=== PATIENT | male | born 1970 | race Caucasian/White ===

== ENCOUNTER → 2020-10-23 07:00 | Outpatient (CLI) | payer OTHER, SELFPAY ==
--- NOTE | 2020-10-23 | DI.MRI.S_ITS ---
PROCEDURE: MR CERVICAL SPINE WO CON INDICATIONS: Spinal stenosis, cervical region TECHNIQUE: Noncontrast sagittal T1 spin echo and T2 fast spin echo, sagittal STIR, foraminal oblique sagittal T2 fast spin echo, and axial gradient echo or T2 fast spin echo through the cervical spine. COMPARISON: None. FINDINGS: Image quality: Degraded by motion artifact. Alignment and Curvature: Mild straightening of the normal cervical lordosis. Bone Marrow: No fracture. Multilevel degenerative endplate sclerosis and spurring. Diffuse facet arthropathy. Spinal Cord: Visualized spinal cord has normal size and signal. No cerebellar tonsillar herniation. Paraspinous Soft Tissues: No paravertebral masses. Prevertebral soft tissues are normal in thickness. C2-C3: Normal appearance. C3-C4: Minimal canal narrowing. Mild bilateral foraminal stenoses. C4-C5: Normal appearance C5-C6: No canal narrowing. Minimal bilateral foraminal narrowing C6-C7: Normal appearance C7-T1: Normal appearance. IMPRESSION: Straightening of the normal lordotic curvature. No high-grade canal or foraminal stenosis. Dictated by: Bautista Vela M.D. on 10/23/2020 at 9:37 Approved by: Bautista Vela M.D. on 10/23/2020 at 9:46
== END ==
PROVIDERS: Referring Provider Student in an Organized Health Care Education/Training Program; Visit Provider Student in an Organized Health Care Education/Training Program
DX: M48.02 Spinal stenosis, cervical region (principal)
CPT/HCPCS: 72141

== ENCOUNTER → 2021-06-12 08:02 | Outpatient (CLI) | payer OTHER, SELFPAY ==
--- NOTE | 2021-06-12 | DI.RAD.S_ITS ---
PROCEDURE: FL SHOULDER INJECTION MR/CT RT INDICATIONS: PAIN COMPARISON: None. TECHNIQUE: The indications, alternatives, benefits, risks, and complications of the procedure were explained to the patient. Written informed consent was obtained and placed in the chart. The shoulder was examined fluoroscopically and a site for needle placement chosen for entry into the glenohumeral joint from an anterior approach. The skin was prepped and draped in a sterile fashion, and 1% lidocaine infiltrated from skin down to joint capsule. A spinal needle was inserted into the glenohumeral joint, and a small amount of iodinated contrast media injected to confirm intra-articular placement of the needle tip. This was followed by approximately 12 mL dilute solution of a gadolinium containing MR contrast agent. The needle was removed and a dressing was applied. The patient was given postprocedural instructions and sent to the MR suite for MR imaging. FINDINGS: A single fluoroscopic spot image demonstrates intra-articular location of injected iodinated contrast. IMPRESSION: Successful fluoroscopically guided administration of dilute Gadolinium solution into the shoulder joint for MR arthrogram. Dictated by: Bautista Vela M.D. on 06/12/2021 at 10:40 Approved by: Bautista Vela M.D. on 06/12/2021 at 10:40
--- NOTE | 2021-06-12 | DI.MRI.S_ITS ---
PROCEDURE: MR SHOULDER RT W CON INDICATIONS: Impingement syndrome of right shoulder TECHNIQUE: After the administration of 12 mL of dilute intra-articular Gadolinium contrast, oblique coronal T1 and T2 spin echo with fat saturation, oblique sagittal T1 spin echo with and without fat saturation, oblique sagittal T2 fast spin echo with fat saturation, axial T1 spin echo with fat saturation through the shoulder. COMPARISON: [facility], MR, MR SHOULDER RT W CON, 04/28/2016, 15:05. [facility] [place], CR, XR SHOULDER 2+ VIEWS RIGHT, 05/28/2021, 10:56. [facility], RF, [place] SHOULDER INJECTION MR/CT RT, 06/12/2021, 9:39. FINDINGS: Image quality: Excellent. Rotator cuff: There is mild supraspinatus and infraspinatus tendinosis with focal low-grade intrasubstance tearing at the posterior supraspinatus/anterior infraspinatus tendon insertion measuring 6 mm in anterior-posterior dimension. The teres minor and subscapularis tendons are intact. There is no significant rotator cuff muscle atrophy. Bones and bursae: No acute trabecular bone injury. Chronic traction cystic changes are seen at the posterosuperior humeral head. Small focus of high-grade cartilage loss is seen at the anteroinferior glenoid adjacent to the labral tear. Mild degenerative changes are seen at the acromioclavicular joint. There is a trace amount of subacromial/subdeltoid bursal fluid that does not fill with intra-articular contrast material. No intra-articular loose body is seen in the glenohumeral joint. Capsule and soft tissues: Nondisplaced tearing of the anterior to anteroinferior labrum is seen. There is also nondisplaced tearing of the superior to posterosuperior labrum. These do not appear significantly changed in extent when compared to the MRI from 04/28/2016. The biceps long head tendon is intact. There is attenuation of the anterior band of the inferior glenohumeral ligament near its humeral attachment with extravasation of intra-articular contrast material into the axillary recess. Some of the ligament fibers are intact. Findings do not appear significantly changed when compared to the prior MRI. IMPRESSION: 1. Overall, no significant change when compared to the MRI from 04/28/2016. 2. Nondisplaced tearing of the anterior to anteroinferior labrum with adjacent focal high-grade cartilage loss at the anteroinferior glenoid. There is also nondisplaced tearing of the superior to posterosuperior labrum. Findings do not appear significantly changed when compared to the MRI from 04/28/2016. 3. Mild supraspinatus and infraspinatus tendinosis with focal low-grade intrasubstance tearing at the distal footprint. 4. Mild acromioclavicular joint osteoarthrosis. Trace subacromial/subdeltoid bursal effusion or bursitis. 5. Chronic partial tearing of the anterior band of the inferior glenohumeral ligament near its humeral insertion. Dictated by: Usman David M.D. on 06/12/2021 at 9:46 Approved by: Usman David M.D. on 06/12/2021 at 9:59
== END ==
PROVIDERS: Referring Provider Orthopaedic Surgery; Visit Provider Orthopaedic Surgery
DX: M75.41 Impingement syndrome of right shoulder (principal); M19.011 Primary osteoarthritis, right shoulder; M75.111 Incomplete rotator cuff tear or rupture of right shoulder, not specified as traumatic
CPT/HCPCS: 23350; 73222; 77002

== ENCOUNTER 2024-05-26 09:22 | Emergency (ER) | payer OTHER, SELFPAY ==
[2024-05-26 09:31] VITALS: BP 140/80; PULSE 84; RESP 14; TEMP 36.8; O2SAT 96; BMI 26.6
--- NOTE | 2024-05-26 09:36 | DI.RAD.S_ITS ---
PROCEDURE: XR SHOULDER RT MIN 2V INDICATIONS: shoulder pain TECHNIQUE: 3 views of the shoulder were acquired. COMPARISON: None. FINDINGS: Bones: No fractures or dislocations. No suspicious bony lesions. Visualized ribs appear intact. Soft tissues: No suspicious soft tissue calcifications. IMPRESSION: No acute bony abnormality. Dictated by: Radha Ragland MD, PhD on 05/26/2024 at 9:53 Approved by: Radha Ragland MD, PhD on 05/26/2024 at 9:53
--- NOTE | 2024-05-26 11:08 | ED.EXTPRO ---
HPI - Extremity Problem <Priya Mccurdy PA-C - Last Filed: 05/26/24 17:04> General Chief complaint: Extremity Problem,Nontraumatic Stated complaint: Right shoulder pain Time Seen by Provider: 05/26/24 11:08 Source: patient Mode of arrival: Ambulatory History of Present Illness HPI Narrative: Mr. Jennings is a pleasant 53-year-old male with a past medical history of HTN, CAD, right shoulder labrum tear bursitis presents to the emergency department for right shoulder pain since this morning. Patient states he suffers with chronic right shoulder pain however this morning when he woke up he had increased pain of the right shoulder, he suspects he slept on it wrong. Pain is exacerbated by crossing his right arm across his body. Right shoulder is tender. He denies any direct injury or trauma. Denies any rash, bruising, deformities. States that he has had MRIs in the past for his right shoulder and seen an orthopedic doctor but chose to avoid surgery. He has taken no pain medication prior to arrival. He is a household refrigeration mechanic and right-hand dominant. Denies fevers, chills, flu-like symptoms. Related Data Home Medications Medication Instructions Recorded Confirmed naproxen sodium 220 mg capsule 220 mg PO ##0 03/15/16 (Aleve) Previous Rx's Medication Instructions Recorded hydrocodone 5 mg-acetaminophen 325 0 tab PO Q6HP PRN #15 tabs 03/15/16 mg tablet ibuprofen 800 mg tablet 800 mg PO Q8HP PRN #20 tabs 03/15/16 acetaminophen 500 mg tablet 1,000 mg (2 x 500 mg) PO Q8H PRN 05/26/24 (Tylenol Extra Strength) pain #21 tabs lidocaine 5 % topical patch 1 patch topical DAILY #15 ea 05/26/24 (Lidoderm) naproxen 375 mg tablet 375 mg PO BID PRN pain #14 tabs 05/26/24 Allergies Allergy/AdvReac Type Severity Reaction Status Date / Time No Known Drug Allergies Allergy Verified 05/26/24 09:30 Review of Systems <Priya Mccurdy PA-C - Last Filed: 05/26/24 17:04> Review of Systems ROS Unobtainable: All systems reviewed & are unremarkable except as noted in HPI and below Patient History <Priya Mccurdy PA-C - Last Filed: 05/26/24 17:04> Social History Smoking Status: Unknown if ever smoked Smoking Status: Unknown if ever smoked alcohol intake frequency: holidays/special occasions only Substance Use Type: does not use Exam <Priya Mccurdy PA-C - Last Filed: 05/26/24 17:04> Narrative Exam Narrative: GENERAL: 53 year old patient appears stated age. Well-developed patient, in no acute distress. HEAD: Atraumatic. Normocephalic. EYES: Extraocular motions intact. No scleral icterus. No injection or drainage. ENT: Nose without bleeding, purulent drainage. NECK: Trachea midline. CARDIOVASCULAR: Regular rate. RESPIRATORY: Speaking in clear, full sentences. No respiratory distress. MUSK: Tenderness to palpation of right AC joint. No overlying skin changes, erythema or increased warmth. Patient has 90? of active abduction of right shoulder. Pain with flexion of right shoulder across the chest. 5/5 bilateral philosophy specialist strength. NEURO: AOx3. SITLT throughout. PV: 2+ BL radial pulses. Initial Vital Signs Initial Vital Signs: Vital Signs Temperature 98.2 F 05/26/24 09:31 Pulse Rate 84 05/26/24 09:31 Respiratory Rate 14 05/26/24 09:31 Blood Pressure 140/80 05/26/24 09:31 Pulse Oximetry 96 05/26/24 09:31 Oxygen Delivery Method Room Air 05/26/24 09:31 <Emely Ignacio DO - Last Filed: 05/29/24 07:24> Initial Vital Signs Initial Vital Signs: Vital Signs Temperature 98.2 F 05/26/24 09:31 Pulse Rate 84 05/26/24 09:31 Respiratory Rate 14 05/26/24 09:31 Blood Pressure 140/80 05/26/24 09:31 Pulse Oximetry 96 05/26/24 09:31 Oxygen Delivery Method Room Air 05/26/24 09:31 Course <Priya Mccurdy PA-C - Last Filed: 05/26/24 17:04> Orders Ordered: Discontinued Medications Ketorolac Tromethamine (Ketorolac 30 Mg/Ml Vial) 30 mg IM NOW ONE Stop: 05/26/24 11:29 Last Admin: 05/26/24 11:35 Dose: 30 mg Documented By: BS Vital Signs Vital signs: Vital Signs - 8 hr 05/26/24 09:31 05/26/24 12:17 Temperature 98.2 F Pulse Rate 84 75 Respiratory Rate 14 16 Blood Pressure 140/80 141/83 H Pulse Oximetry 96 97 Oxygen Delivery Method Room Air Room Air <Emely Ignacio DO - Last Filed: 05/29/24 07:24> Orders Ordered: Discontinued Medications Ketorolac Tromethamine (Ketorolac 30 Mg/Ml Vial) 30 mg IM NOW ONE Stop: 05/26/24 11:29 Last Admin: 05/26/24 11:35 Dose: 30 mg Documented By: BS Vital Signs Vital signs: Vital Signs - 8 hr 05/26/24 09:31 05/26/24 12:17 Temperature 98.2 F Pulse Rate 84 75 Respiratory Rate 14 16 Blood Pressure 140/80 141/83 H Pulse Oximetry 96 97 Oxygen Delivery Method Room Air Room Air MDM - Extremity (Nontraumatic) <Priya Mccurdy PA-C - Last Filed: 05/26/24 17:04> Medical Records Medical records narrative: 06/12/21 R shoulder MRI: IMPRESSION: 1. Overall, no significant change when compared to the MRI from 04/28/2016. 2. Nondisplaced tearing of the anterior to anteroinferior labrum with adjacent focal high-grade cartilage loss at the anteroinferior glenoid. There is also nondisplaced tearing of the superior to posterosuperior labrum. Findings do not appear significantly changed when compared to the MRI from 04/28/2016. 3. Mild supraspinatus and infraspinatus tendinosis with focal low-grade intrasubstance tearing at the distal footprint. 4. Mild acromioclavicular joint osteoarthrosis. Trace subacromial/subdeltoid bursal effusion or bursitis. 5. Chronic partial tearing of the anterior band of the inferior glenohumeral ligament near its humeral insertion. Imaging Data R shoulder XRAY: My Impression: On my independent interpretation of right shoulder x-ray, no fracture of the humerus. Radiologist's Impression: FINDINGS: Bones: No fractures or dislocations. No suspicious bony lesions. Visualized ribs appear intact. Soft tissues: No suspicious soft tissue calcifications. IMPRESSION: No acute bony abnormality. MDM Narrative Medical decision making narrative: 53-year-old male presents to the emergency department for nontraumatic right shoulder pain since this morning. Differential diagnosis includes but is not limited to right shoulder fracture, strain, sprain, rotator cuff injury, labrum injury, bursitis. On exam patient is in no acute distress, nontoxic-appearing, all vital signs within normal limits. He has tenderness to palpation of the right AC joint. He has limited active range of motion secondary to pain. Upper extremities are neurovascularly intact. Right shoulder x-ray reveals no acute bony abnormalities. Patient has a documented history of labrum tear, AC joint arthritis, etc.. Suspect exacerbation of underlying injuries due to sleeping wrong. Recommended patient rest, wear sling for comfort, alternate naproxen and Tylenol, use lidoderm, and follow up with his PCP & orthopedic doctor for persistent pain. Discussed strict ER return precautions. Patient was given Toradol in the ED. he is agreeable to the plan and stable for discharge home. Discharge Plan Departure Patient Disposition: Home Clinical Impression: Acute pain of right shoulder Instructions: DI for Shoulder Pain Activity Restrictions/Additional Instructions: Today you were evaluated for right shoulder pain. Your x-ray does not show any acute bony abnormalities. I have prescribed you an anti-inflammatory medication, naproxen which you can take twice daily, and Tylenol which you can take 3 times daily. Alternating times you take these medications. You were given a shot of an anti-inflammatory pain medicine in the ER, therefore you do not need to take the prescribed naproxen until later this evening. You may take Tylenol when needed. Do not take naproxen and asprin together. Rest, use ice for 15 minutes 4 times a day on the shoulder, and wear the sling for comfort. Please follow-up with your primary care doctor within the next week and your orthopedic doctor if you have persistent pain. Return to the emergency room if you develop any new or worsening symptoms. Prescriptions: New naproxen 375 mg tablet 375 mg PO BID PRN (Reason: pain) Qty: 14 0RF acetaminophen [Tylenol Extra Strength] 500 mg tablet 1,000 mg PO Q8H PRN (Reason: pain) Qty: 21 0RF lidocaine [Lidoderm] 5 % adhesive patch,medicated 1 patch topical DAILY Qty: 15 0RF Rx Instructions: leave on most painful area for up to 12 hrs No Action naproxen sodium [Aleve] 220 MG capsule 220 mg PO Qty: 0 ibuprofen 800 MG tablet 800 mg PO Q8HP PRNQty: 20 0RF hydrocodone-acetaminophen 5 MG/325 MG tablet 0 tab PO Q6HP PRNQty: 15 0RF Referrals: Provider,Darrel FRANKLIN [Primary Care Provider] - Stand Alone Forms: Patient Portal/API/Survey, Work Release Note ED Sign-out <Emely Ignacio DO - Last Filed: 05/29/24 07:24> Cosign ED Attending Cosignature Attestation: I was available for consultation.
[2024-05-26] MEDS: KETOROLAC 30 MG/ML VIAL IM (11:35)
[2024-05-26 12:17] VITALS: BP 141/83; PULSE 75; RESP 16; O2SAT 97
== END 2024-05-26 12:17 | disposition home or self-care (01) ==
PROVIDERS: Emergency Provider Physician Assistant
DX: M25.511 Pain in right shoulder (principal)
CPT/HCPCS: 73030; 96372; 99283; J1885

== ENCOUNTER → 2024-09-06 09:21 | Outpatient (CLI) | payer OTHER, SELFPAY ==
[2024-09-06 10:08] LABS: Alanine Aminotransferase 65 IU/L (<50); Albumin 4.7 g/dL (3.5-5.0); Albumin Globulin Ratio 1.7 (1.0-2.8); Alkaline Phosphatase 98 U/L (38-126); Aspartate Aminotransferase 45 IU/L (17-59); BUN Creatinine Ratio 12.6 (6-22); Bilirubin Total 0.8 mg/dL (0.2-1.3); Blood Urea Nitrogen 11 mg/dL (9-20); Calcium 9.8 mg/dL (8.4-10.2); Carbon Dioxide 28 mmol/L (22-32); Chloride 105 mmol/L (98-107); Cholesterol 140 mg/dL (140-199); Estimated Glomerular Filt Rate > 60 mL/min (>60); Globulin 2.8 g/dL (1.7-4.1); Glucose 121 mg/dL (70-100); HDL Cholesterol 46 mg/dL (40-60); HEMOLYSIS < 15 (0-50); LDL Cholesterol Calculated 82 mg/dL (<100); Potassium 4.4 mmol/L (3.4-5.1); Sodium 143 mmol/L (137-145); Total Protein 7.5 g/dL (6.3-8.2); Triglycerides 60 mg/dL (35-150)
[2024-09-06 10:38] LABS: Prostate Specific Antigen Scrn 0.782 ng/mL (0.1-4.0)
[2024-09-06 10:59] LABS: HIV 1 & 2 Ab/Ag 4th Gen Combo NEGATIVE (NEGATIVE); Hep C Virus Ab w/Reflex Quant NEGATIVE s/c (NEGATIVE)
== END ==
PROVIDERS: PCP Family Medicine; Referring Provider Family Medicine; Visit Provider Family Medicine
DX: I25.10 Atherosclerotic heart disease of native coronary artery without angina pectoris (principal); E78.5 Hyperlipidemia, unspecified; M25.511 Pain in right shoulder; M72.2 Plantar fascial fibromatosis; D48.5 Neoplasm of uncertain behavior of skin; Z12.5 Encounter for screening for malignant neoplasm of prostate
CPT/HCPCS: 36415; 80053; 80061; 86803; 87389; G0103

== ENCOUNTER → 2024-11-17 06:58 | Outpatient (CLI) | payer OTHER, SELFPAY ==
--- NOTE | 2024-11-17 07:00 | DI.ECHO.S_ITS ---
[facility] : : [address] : : [place] : : [id number] : : Phone: [phone] Echocardiogram Report + + :Name: MARILU GRAY Study Date: 11/17/2024 Height: 69 in : :[facility] : Weight: 195 lb : : Gender: Male BSA: 2.0 m2 : :: 1970 Age: 53 yrs BP: 143/91 mmHg: :Reason For Study: ARTERIOSCLEROTIC HEART DISEASE : :Ordering Physician: : :TAY HOGAN Performed By: Trell Finn : :Referring: UNSPECIFIED : + + Interpretation Summary The left ventricle is normal in size. Left ventricular systolic function appears normal without focal wall motion abnormalities. The ejection fraction is estimated to be 60-65%. Diastolic parameters suggest probable normal left ventricular diastolic function and normal filling pressures. The right ventricle is mildly dilated. The right ventricular systolic function is normal. Pulmonary artery pressures cannot be estimated because of the lack of a measurable TR jet velocity but the IVC suggests a CVP of around 3 mmHg. The left atrial size is normal. There is no significant valvular heart disease. The aortic root is normal size. Compared to the prior echo report on 11/05/2021, there is no significant change. Procedure: A two-dimensional transthoracic echocardiogram with color flow and Doppler was performed. The study quality was technically good. Comparison is made with the echocardiogram of 11/05/2021. The patient was in normal sinus rhythm during the exam. Left Ventricle: The left ventricle is normal in size. There is normal left ventricular wall thickness. There is no ventricular septal defect visualized. Left ventricular systolic function appears normal without focal wall motion abnormalities. The ejection fraction is estimated to be 60-65%. Diastolic parameters suggest probable normal left ventricular diastolic function and normal filling pressures. Right Ventricle: The right ventricle is mildly dilated. The right ventricular systolic function is normal. Atria: The left atrial size is normal. The right atrium is moderately dilated. There is no Doppler evidence for an interatrial shunt. Mitral Valve: The mitral valve leaflets appear normal. There is no evidence of stenosis, fluttering, or prolapse. There is trace mitral regurgitation. Aortic Valve: The aortic valve is trileaflet. The aortic valve is slightly calcified. The aortic valve opens well. No aortic regurgitation is present. Tricuspid Valve: The tricuspid valve leaflets are thin and pliable. There is a trace or physiologic amount of tricuspid regurgitation. Pulmonary artery pressures cannot be estimated because of the lack of a measurable TR jet velocity but the IVC suggests a CVP of around 3 mmHg. Pulmonic Valve: The pulmonic valve leaflets are thin and pliable; valve motion is normal. There is no pulmonic valvular regurgitation. There is no significant valvular heart disease. Great Vessels: The aortic root is normal size. The dimensions of the ascending aorta are normal. The pulmonary artery is normal size. The IVC is of normal diameter and collapses greater than 50% with a sniff. This suggests a low right atrial pressure of 3 mm Hg. Pericardium/ Pleura There is no pericardial effusion. There is no pleural effusion. MMode/2D Measurements & Calculations LVIDd: 4.7 cm LVOT diam: 2.0 cm LVIDs: 3.0 cm Ao root diam: 3.2 cm FS: 36.8 % asc Aorta Diam: 3.1 cm EPSS: 0.52 cm Ao Arch Diam (Prox Trans): 2.2 cm IVSd: 0.95 cm LVPWd: 0.91 cm LV martinez. diameter/BSA (cm/m^2): 2.3 LV sys. diameter/BSA (cm/m^2): 1.5 LA A2 area: 18.7 cm2 RA long axis: 5.5 cm LA A4 area: 20.8 cm2 RA area: 20.0 cm2 LA length (vol): 6.0 cm RA vol: 61.7 ml LA vol: 55.2 ml RA : 30.2 ml/m2 LA vol index: 27.0 ml/m2 IVC diam: 1.4 cm RVD1 (basal): 4.2 cm RVD2 (mid): 3.6 cm TAPSE: 2.8 cm Doppler Measurements & Calculations Ao V2 max: 156.3 cm/sec LVOT Max Benji: 133.9 cm/sec Ao V2 mean: 114.2 cm/sec LV V1 max P.2 mmHg Ao max P.8 mmHg LV V1 VTI: 25.7 cm Ao mean P.7 mmHg KATHRINE(I,D): 2.8 cm2 Ao V2 VTI: 30.0 cm KATHRINE(V,D): 2.8 cm2 sev ratio: 0.86 KATHRINE indexed to BSA (cm^2/m^2): 1.4 MV E max benji: 84.9 cm/sec TR max benji: 215.0 cm/sec MV A max benji: 46.5 cm/sec TR max P.5 mmHg MV E/A: 1.8 PA V2 max: 141.7 cm/sec Med Peak E' Benji: 12.3 cm/sec PA V2 mean: 102.3 cm/sec E/E' med: 6.9 PA mean P.6 mmHg Lat Peak E' Benji: 14.8 cm/sec PA pr(Accel): 55.0 mmHg E/E' lat: 5.7 E/e' average: 6.3 MV dec time: 0.18 sec SV(LVOT): 83.7 ml Reading Physician:02:06 PM
== END ==
PROVIDERS: PCP Family Medicine; Referring Provider Orthopaedic Surgery; Visit Provider Orthopaedic Surgery
DX: I25.10 Atherosclerotic heart disease of native coronary artery without angina pectoris (principal)
CPT/HCPCS: 93306

== ENCOUNTER → 2025-01-12 08:03 | Outpatient (CLI) | payer OTHER, SELFPAY ==
--- NOTE | 2025-01-12 08:58 | DI.RAD.S_ITS ---
PROCEDURE: XR CHEST 2V INDICATIONS: SoB TECHNIQUE: 2 views of the chest were acquired. COMPARISON: None. FINDINGS: Heart, mediastinum and pulmonary vascular: Heart is normal in size and configuration. Mediastinum is unremarkable. Pulmonary vascular is normal. Lungs: Clear Pleural spaces: Normal-no effusions or pneumothorax. Bones and soft tissues: Normal IMPRESSION: Normal chest. Dictated by: Erik Cardenas M.D. on 01/13/2025 at 13:03 Approved by: Erik Cardenas M.D. on 01/13/2025 at 13:03
== END ==
PROVIDERS: PCP Family Medicine; Referring Provider Chiropractor; Visit Provider Chiropractor
DX: R06.02 Shortness of breath (principal); Z87.891 Personal history of nicotine dependence
CPT/HCPCS: 71046; 94060